=== PATIENT | female | born 1945 | race Caucasian/White ===

== ENCOUNTER 2023-08-29 13:40 | Inpatient (IN) | payer MEDICARE, BC, SELFPAY ==
[2023-08-29] VITALS (12 sets, daily range): BP systolic 106–122; BP diastolic 56–73; PULSE 64–80; RESP 12–18; TEMP 36.5–37.1; O2SAT 97–99; BMI 24.9
--- NOTE | 2023-08-29 15:07 | ED_ITS ---
HPI - General Adult General Date Seen: 08/29/23 Chief complaint: Fall/Minor Trauma Stated complaint: fall 2x last 24 hours Time Seen by Provider: 08/29/23 15:05 History of Present Illness HPI narrative: This is a pleasant 78-year-old female with a history of dementia who is brought to the ER today by her son with concern for new worsening memory problems and multiple episodes of falls at home. She has a known diagnosis of dementia and had been stable on that for several months. They follow with their doctor through the [facility] and she is on donepezil to treat her dementia it, 10 mg twice a day. The patient's sister did come to visit her couple of weeks ago (because her son was getting ) and noted that she seemed to have did deteriorated since last fall. She had a couple of episodes where she woke up shouting in the middle of the night. However her son is near to her and visits her every day. The patient is normally able to care for self at home. She does not really cook or microwave meals so her son brings over food for her. She has a dog and is generally able to keep up her town home. However for the past couple of days she seems to be more confused than normal. Her son came to check on her last night and actually found her on the floor of the landing but near her front door. She has a split-level town home. It is unclear if she fell. She had a diet Coke that she had set carefully on the floor and did not spill. However her son found the patient on the floor. She required assistance up. She was able to walk and seemed to have no injury. She had no lower episode last night where she seemed to have either fallen in the toilet gotten off the toilet. She had been incontinent of urine and stool and then pulled herself across the floor. She son and [id number] found her on the floor this morning. Her dog had been on its tires out lead in the backyard and had been let back in the door but not taken off the lead. The patient was on the floor. Patient does have dementia sure she is not a reliable historian. She has no complaints. However she had mentioned to her son earlier that there was a bump on the back of her head. She has a bruise on her left wrist ulnar styloid that she does not recall receiving. She denies any other pain. She has had a bit of a cough the past couple of days. No fever. No trouble breathing. No stuffy nose. No other definite symptoms. As far as we know her appetite has been normal. No known dysuria or urgency. We think bowel movements have been normal. She takes baby aspirin and donepezil. No other meds. Related Data Home Medications Medication Instructions Recorded Confirmed aspirin 81 mg chewable tablet 81 mg PO DAILY 08/29/23 08/29/23 Allergies Allergy/AdvReac Type Severity Reaction Status Date / Time No Known Drug Allergies Allergy Verified 08/29/23 14:04 [facility] Social History Smoking Status: Never smoker Do you use any of these nicotine containing products: None How often do you have a drink containing alcohol: never AUDIT-C Alcohol total score: 0 service: No Exam Narrative: Exam Narrative: Constitutional: Appears well-developed and well-nourished. Alert. Conversant. Non toxic. HENT: Head: 2 cm occipital scalp hematoma. No underlying skull fracture. No raccoon eyes or Braga sign.. Nose: Nose normal. Mouth/Throat: Oral mucosa is clear and moist. no trismus. Pharynx normal. Tonsils symmetric. No tonsillar enlargement, erythema, or exudate. Eyes: Conjunctivae normal. EOM normal. Pupils equal, round, and reactive to light. No scleral icterus. Neck: Normal range of motion. Neck supple. No tracheal deviation present. No JVD Cardiovascular: Normal rate, regular rhythm. No gallop. No friction rub. No murmur heard. Symmetric radial and PT/DP artery pulses Pulmonary/Chest: Effort normal. No stridor. No respiratory distress. No wheezes. No rales. No rhonchi . No tenderness. Abdominal: Soft. Bowel sounds normal. No distension. She has a ventral hernia which is previously known. No tenderness.. No tenderness. No rebound. No guarding. Musculoskeletal: RUE: Normal range of motion. No tenderness. No deformity LUE: Normal range of motion. No tenderness. No deformity RLE: Normal range of motion. No edema. No tenderness. No deformity LLE: Normal range of motion. No edema. No tenderness. No deformity Lymph: No cervical adenopathy. Neurological: Alert and oriented to person, and knows that she is at the hospital but does not know what day it is. She is minimizing lot of her symptoms. Normal strength bilaterally in the physical education department chair, biceps, triceps, hip flexors, quads, hamstrings, gastrocnemius, tibialis anterior.. CN II-VII intact. No focal sensory deficit. GCS eye subscore is 4. GCS verbal subscore is 5. GCS motor subscore is 6. Normal coordination Skin: Skin is warm and dry. No rash noted. No pallor. Normal capillary refill. Psychiatric: Normal mood. Normal affect. Polite but poor memory. Const: Vital Signs, click to edit/add: Vital Signs - 24 hr 08/29/23 13:57 08/29/23 17:44 08/29/23 18:01 Temperature 97.7 F Pulse Rate 64 65 Pulse Rate [Right Pulse Oximeter] 74 Respiratory Rate 14 16 Blood Pressure 122/64 117/63 Blood Pressure [Ri ght Upper Arm] 108/67 Pulse Oximetry 99 98 98 Oxygen Delivery Me thod Room Air 08/29/23 18:31 08/29/23 19:01 08/29/23 19:31 Temperature Pulse Rate 69 71 68 Pulse Rate [Right Pulse Oximeter] Respiratory Rate 16 14 12 Blood Pressure 118/73 115/69 112/64 Blood Pressure [Ri ght Upper Arm] Pulse Oximetry 98 98 97 Oxygen Delivery Me thod 08/29/23 20:01 08/29/23 20:31 08/29/23 20:54 Temperature 97.7 F Pulse Rate 72 70 Pulse Rate [Right Pulse Oximeter] 74 Respiratory Rate 14 12 12 Blood Pressure 109/64 108/60 Blood Pressure [Ri ght Upper Arm] 108/67 Pulse Oximetry 97 98 Oxygen Delivery Me thod Course Vital Signs Vital signs: Initial Vital Signs Temperature 97.7 F 08/29/23 13:57 Temperature Source Temporal Artery Scan 08/29/23 13:57 Pulse Rate 74 08/29/23 13:57 Pulse Rhythm Regular 08/29/23 13:57 Pulse Strength 3+ Normal 08/29/23 13:57 Blood Pressure 108/67 08/29/23 13:57 Blood Pressure Mean 80 08/29/23 13:57 Blood Pressure Position Sitting 08/29/23 13:57 Pulse Oximetry 99 08/29/23 13:57 Oxygen Delivery Method Room Air 08/29/23 13:57 Vital Signs Temperature 97.7 F 08/29/23 13:57 Pulse Rate 74 08/29/23 13:57 Blood Pressure 108/67 08/29/23 13:57 Pulse Oximetry 99 08/29/23 13:57 Oxygen Delivery Method Room Air 08/29/23 13:57 Temperature 97.7 F 08/29/23 20:54 Pulse Rate 74 08/29/23 20:54 Respiratory Rate 12 08/29/23 20:54 Blood Pressure 108/67 08/29/23 20:54 Pulse Oximetry 98 08/29/23 20:31 Oxygen Delivery Method Room Air 08/29/23 13:57 Medications Administered Medications: Generic Name Dose Route Start Last Admin Trade Name Freq PRN Reason Stop Dose Admin Acetaminophen 1,000 mg 08/29/23 20:28 08/29/23 20:38 Acetaminophen 500 Mg Tablet PO 08/29/23 20:29 1,000 mg ONCE ONE Administration Discontinued Medications Generic Name Dose Route Start Last Admin Trade Name Freq PRN Reason Stop Dose Admin Ceftriaxone Sodium 1 gm/ 100 mls @ 200 mls/hr 08/29/23 18:10 08/29/23 19:00 Sodium Chloride IVPB 08/29/23 18:11 Infused ONCE ONE Infusion Azithromycin 500 mg/ Sodium 255 mls @ 255 mls/hr 08/29/23 18:10 08/29/23 20:10 Chloride IVPB 08/29/23 18:11 Infused ONCE ONE Infusion Sodium Chloride 1,000 mls @ 1,000 mls/hr 08/29/23 20:00 08/29/23 20:26 0.9 % Sodium Chloride 1000 Ml IV 08/29/23 20:59 1,000 mls/hr .Q1H [facility] Administration Medical Decision Making MDM Narrative Medical decision making narrative: 78-year-old female with a known history of dementia, but still functional enough that she lives in her own town home. She may have been slowly declining since last fall but son who sees her every day notes a significant change in function this weekend over the past couple of days including 2 episodes where she has been found on the floor, unknown if she has fallen or what. She also seems more confused with more poor memory than her baseline. 1. Trauma. She does have a few small areas of ecchymosis on her skin but no obvious long bone injuries. Hips are nontender and pelvis is stable. We did get a CT scan of her head because of a small occipital hematoma. Head CT is normal. She is not having neck pain but C-spine cannot be cleared without imaging due to dementia and limited exam. C-spine CT is also negative. She is not having any pain or tenderness of ribcage or chest. No other evidence for a significant traumatic injury. 2. Infectious disease. Consider possible sepsis, UTI, or other infection as a cause for an acute on chronic mental status change. White count elevated at 12.6. CRP elevated at 17. She is not febrile. Blood pressure and pulse rate are normal. No sepsis physiology. Negative for coronavirus, influenza, RSV by PCR. Chest x-ray suggests a right upper lobe infiltrate. This would correlate with rales on my clinical exam. She is not hypoxic minimal coughing. Suspect that she may have and community-acquired pneumonia and potentially this is why she has been falling at home. Will treat with IV antibiotics. Urinalysis - still pending at the time of admission. She did produce 2 urine samples but contaminated them both with feces therefore we do not have a sample yet for analysis. Hospitalist aware and can follow up on urine sample once it is obtained on the floor. 2. Cardiac - EKG nonischemic. No arrhythmia. 3. Neuro-patient does have known dementia and son feels like she has been deteriorating lately. There is also an acute on chronic change that occurred this weekend leading to the falls. Son is requesting that we have a consult with social Work to consider placement in a memory care unit. This can be obtained while she is on the floor. Lab Data Labs: Lab Results 08/29/23 Range/Units 15:38 WBC 12.67 H (4.50-11.00) K/uL RBC 4.11 (4.00-5.20) m/uL Hgb 12.3 (12.0-16.0) gm/dL Hct 37.3 (33.0-51.0) % MCV 91 (80-100) fL MCH 30 (26-34) pg MCHC 33 (32-36) gm/dL RDW Coeff of Gail 14.0 (11.5-15.5) % Plt Count 262 (140-440) K/uL Neut % (Auto) 77.0 H (42.0-72.0) % Lymph % (Auto) 17.8 L (20-44) % [place] % (Auto) 4.7 (0.0-11.0) % Eos % (Auto) 0.2 (0.0-7.0) % Baso % (Auto) 0.1 (0.0-3.0) % Neut # (Auto) 9.80 H (1.7-7.0) K/uL Lymph # (Auto) 2.30 (0.90-2.90) K/uL [place] # (Auto) 0.60 (0.00-0.90) K/UL Eos # (Auto) 0.00 (0.00-0.50) K/uL Baso # (Auto) 0.00 (0.00-0.30) K/uL Abs Immat Gran (auto) 0.00 (0.00-0.30) K/uL Imm/Tot Granulo (auto) 0.2 % Sodium 134 L (135-149) mmol/L Potassium 3.7 (3.6-5.1) mmol/L Chloride 99 (96-114) mmol/L Carbon Dioxide 24 (20-32) mmol/L Anion Gap 11 (7-15) mEq/L BUN 26 (7-30) mg/dL Creatinine 0.9 (0.5-1.5) mg/dL Estimated Creat Clear 40.04 Estimated GFR 65 ml/min Glucose 106 (60-115) mg/dL Lactate 1.1 (0.5-1.9) mmol/L Calcium 9.9 (8.4-10.6) mg/dL Troponin I < 0.01 L (0.01-0.04) ng/mL C-Reactive Protein 17.3 H (0.5-1.0) mg/dL SARS-CoV-2 (PCR) Negative SARS-CoV-2 (Negative) Influenza Type A (PCR) Negative PCR FLU A (Negative) Influenza Type B (PCR) Negative PCR FLU B (Negative) RSV (PCR) Negative PCR RSV (Negative) Imaging Data Chest x-ray: Attestation: I have reviewed the pertinent imaging results. Radiologist's impression: IMPRESSION: 1. Infiltrates right upper lobe; difficult to differentiate acute from chronic. 2. No pneumothorax or pleural effusion. CT C spine: Attestation: I have reviewed the pertinent imaging results. Radiologist's impression: IMPRESSION: No acute fracture. CT scan - head: Attestation: I have reviewed the pertinent imaging results. Radiologist's impression: IMPRESSION: No acute intracranial hemorrhage or mass effect. ECG Data Attestation: I personally reviewed and interpreted this ECG as follows: Interpretation: Normal sinus rhythm with marked sinus arrhythmia Rate: 67 HI: 182 QRS axis: Normal axis ST segment/T wave: Nonspecific T-wave flattening. No ST segment elevation or depression QTc: 420 Discharge Plan Discharge Clinical Impression: Confusion, Pneumonia, Falls Patient Disposition: Admitted As Observation
--- NOTE | 2023-08-29 15:27 | CT_ITS ---
Patient: ALLI CADE Facility:?[facility] Patient ID:?[id number] Site Patient ID:?[id number]. Site :?1945 Study:?CT-Head WITHOUT-08/29/2023 4:06:00 PM Ordering Physician:?DR. GONCALVES Final Report: INDICATION: Fall. TECHNIQUE: Noncontrast CT images of the brain. COMPARISON: None. FINDINGS: [id number] diffuse cerebral volume loss. No mass effect or midline shift. The andrews-white differentiation is maintained. No acute intracranial hemorrhage or pathologic extra-axial fluid collection. Confluent hypoattenuation in the supratentorial white matter, suggestive of advanced chronic microvascular ischemic changes. Intracranial atherosclerotic calcifications. Thinning of the ocular lenses. The calvarium is intact. Minimal ethmoid sinus mucosal thickening. The mastoid air cells are clear. IMPRESSION: No acute intracranial hemorrhage or mass effect. Please note that all CT scans at this facility use dose modulation, iterative reconstruction, and/or weight-based dosing when appropriate to reduce radiation dose to as low as reasonably achievable. Dictated by Michael Elizabeth MD @ 08/29/2023 4:23:09 PM Signed by:?Michael Elizabeth MD @08/29/2023 4:23:09 PM (Electronic Signature)
--- NOTE | 2023-08-29 15:27 | XR_ITS ---
Patient: ALLI CADE Facility:?[facility] Patient ID:?[id number] Site Patient ID:?[id number] Site :?1945 Study:?XRay-Chest 2 VIEW-08/29/2023 4:07:20 PM Ordering Physician:?DR. GONCALVES Final Report: INDICATION: Fell; right basilar rales. Comparison : None. TECHNIQUE: Two view chest. Findings: Pectus excavatum deformity. Normal size cardiac silhouette. Infiltrates upper lobe right lung; can not differentiate acute from chronic IMPRESSION: 1. Infiltrates right upper lobe; difficult to differentiate acute from chronic. 2. No pneumothorax or pleural effusion. Dictated by Ashlyn Dave MD @ 08/29/2023 4:30:32 PM Signed by:?Ashlyn Dave MD @08/29/2023 4:30:32 PM (Electronic Signature)
--- NOTE | 2023-08-29 15:27 | CT_ITS ---
Patient: ALLI CADE Facility:?[facility] Patient ID:?[id number] Site Patient ID:?[id number]. Site :?1945 Study:?CT-Spine Cervical WITHOUT-08/29/2023 4:06:32 PM Ordering Physician:?DR. GONCALVES Final Report: INDICATION: Fall. TECHNIQUE: CT cervical spine without contrast. COMPARISON: None. FINDINGS: No acute fracture. No listhesis. Bony mineralization is age appropriate. No prevertebral soft tissue hematoma or swelling. No soft tissue abnormality is identified. Severe multilevel cervical spondylosis. Chronic height loss of multiple vertebral bodies. Disc osteophyte complexes causing at least effacement of the anterior thecal sac. No pathologically enlarged lymph nodes. Thyroid is normal. Biapical subpleural fibrosis.. IMPRESSION: No acute fracture. Please note that all CT scans at this facility use dose modulation, iterative reconstruction, and/or weight-based dosing when appropriate to reduce radiation dose to as low as reasonably achievable. Dictated by Blaise Bal MD @ 08/29/2023 4:18:57 PM Signed by:?Blaise Bal MD @08/29/2023 4:18:57 PM (Electronic Signature)
[2023-08-29 15:45] LABS: Basophils Percent Auto 0.1 % (0.0-3.0); Eosinophils Percent Auto 0.2 % (0.0-7.0); Hematocrit 37.3 % (33.0-51.0); Hemoglobin* 12.3 gm/dL (12.0-16.0); Immature Granulocytes Pct Auto 0.2 %; Lactate* 1.1 mmol/L (0.5-1.9); Lymphocytes Percent Auto 17.8 % (20-44); Mean Corpuscular HGB Conc 33 gm/dL (32-36); Mean Corpuscular Hemoglobin 30 pg (26-34); Mean Corpuscular Volume 91 fL (80-100); Monocytes Percent Auto 4.7 % (0.0-11.0); Platelet Count* 262 K/uL (140-440); Red Blood Count 4.11 m/uL (4.00-5.20); White Blood Count* 12.67 K/uL (4.50-11.00)
[2023-08-29 15:48] LABS: Slide Review Reflex No
[2023-08-29 16:07] LABS: Chloride* 99 mmol/L (96-114); Potassium* 3.7 mmol/L (3.6-5.1); Sodium* 134 mmol/L (135-149)
[2023-08-29 16:10] LABS: Creatinine* 0.9 mg/dL (0.5-1.5); Est. Creatinine Clearance* 40.04; Estimated Glomerular Filt Rate 65 ml/min
[2023-08-29 16:11] LABS: Anion Gap 11 mEq/L (7-15); Blood Urea Nitrogen* 26 mg/dL (7-30); Calcium* 9.9 mg/dL (8.4-10.6); Carbon Dioxide* 24 mmol/L (20-32); Glucose* 106 mg/dL (60-115)
[2023-08-29 16:25] LABS: C Reactive Protein* 17.3 mg/dL (0.5-1.0); Troponin I* < 0.01 ng/mL (0.01-0.04)
[2023-08-29 16:50] LABS: PCR FLU A Negative PCR FLU A (Negative); PCR FLU B Negative PCR FLU B (Negative); PCR RSV Negative PCR RSV (Negative); SARS PCR* Negative SARS-CoV-2 (Negative)
[2023-08-29] MEDS: cefTRIAXone 1 GM in 0.9 % SODIUM CHLORIDE Mini-bag 100 ML IVPB (18:28)
[2023-08-29] MEDS: AZITHROMYCIN 500 MG in 0.9 % SODIUM CHLORIDE 250 ml 250 ML 255 MG IVPB (19:11)
[2023-08-29] MEDS: 0.9 % SODIUM CHLORIDE 1000 ml 1,000 ML IV (20:26)
[2023-08-29] MEDS: ACETAMINOPHEN 500 MG TABLET 1000 MG PO (20:38)
--- NOTE | 2023-08-29 22:30 | P.IMHP_ITS ---
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 Gold, neurologist), presents accompanied by her son, Josr, for assessment of worsening ability to care for herself safely. Patient lives alone in her town house with her dog. Son lives 2 blocks away. Son and check on the patient at least twice daily, sometimes more often. Over the last few days the patient has been more confused. Patient has had several falls. None the episodes were witnessed. One episode occurred such that the patient's son found her on the floor near the entry way without apparent injury. A 2nd episode occurred last night when she seems to have fallen near the toilet. Noticed bruising on her elbow and wrist from this. This morning when they went to her home to assess her, she was not answering her phone, they found her on the floor with stool in urine nearby. Patient usually carries her cell phone with her but had left it in her bedroom and did not have the cellphone near her. The patient's dog had a lesion on it as if though it had been let in the house but the leash was kept on. Patient has little recollection of any of these episodes. Patient tells me she is happy and healthy goes to the gym a couple times a week. She tries to eat the right foods. Has no complaints. Has no concerns about falling. Review of Systems Status of ROS: Reports: 6 or more systems reviewed and unremarkable except as noted in History and below Narrative: Patient and son deny any recent illness, fever, rigors, diaphoresis. No change in patient's respiratory abilities. No obvious dyspnea or tachypnea. No obvious cough. No obvious chest heaviness, pressure, tightness, or pain. Cognitive and physical abilities have gradually declined without any sudden ch anges or worsening. Only in the last few days has there been increasing concerned that patient is no longer able to safely care for herself. Patient and son note that the patient requests DNR DNI resuscitation status in the event of cardiopulmonary demise. Her son, Josr, is her power of textile cutting machine operator for health. Josr indicates he believes his mother needs a lot more support than what she currently has in the home and it has become evident within the last few days that it is no longer safe for her mother to continue to live as she has been. No history of tobacco use. Her 2nd smoked in the home for number of years before he finally quit and patient was exposed to secondhand smoke throughout that time. No history of alcohol use. No substance use disorder. [facility] Medical History (Updated 08/29/23 @ 23:05 by Yaakov Bass MD) Rectal prolapse ?K62.3 - Rectal prolapse (ICD-10) Arthritis ?M19.90 - Unspecified osteoarthritis, unspecified site (ICD-10) Detached retina ?H33.20 - Serous retinal detachment, unspecified eye (ICD-10) Hyperlipidemia ?E78.5 - Hyperlipidemia, unspecified (ICD-10) Essential hypertension ?I10 - Essential (primary) hypertension (ICD-10) Mixed Alzheimer's and vascular dementia ?G30.9 - Alzheimer's disease, unspecified (ICD-10) ?F01.50 - Vascular dementia, unspecified severity, without behavioral disturbance, psychotic disturbance, mood disturbance, and anxiety (ICD-10) ?F02.80 - Dementia in other diseases classified elsewhere, unspecified severity, without behavioral disturbance, psychotic disturbance, mood disturbance, and anxiety (ICD-10) Family History (Updated 08/29/23 @ 22:48 by Yaakov Bass MD) Mother Alzheimers disease Father Alcohol dependence Sister Kidney disease Social History What is your current living situation?: I presently have a place to live Problems where you live: no known problems Problems where you live details: no known problems In the past 12 months, utilities in danger of being shut off: no In past 12 months, lack of transportation kept you from medical appts, meetings, work, or getting things needed for daily living: no In the past 12 mos, have been you worried that your food would run out before you had money to buy more?: never true In the past 12 mos, the food you bought just didn't last and you didn't have money to buy more?: never true Smoking Status: Never smoker Do you use any of these nicotine containing products: None Second hand tobacco smoke exposure: No How often do you have a drink containing alcohol: never AUDIT-C Alcohol total score: 0 Non-prescribed substance use: denies use Caffeine: Yes (Coffee and diet coke) How often does anyone, including family, friends and others, physically hurt you : never How often does anyone, including family, friends and others, insult or talk down to you: never How often does anyone, including family, friends and others, threaten you with harm: never How often does anyone, including family, friends and others, scream or curse at you: never service: No Meds Home Medications and Allergies Home Medications Medication Instructions Recorded Confirmed Type aspirin 81 mg chewable tablet 81 mg PO DAILY 08/29/23 08/29/23 History Home Medication Comments: Donepezil 10 mg orally twice daily, administered by son and [id number] Allergies Allergy/AdvReac Type Severity Reaction Status Date / Time No Known Drug Allergies Allergy Verified 08/29/23 14:04 Exam Narrative: Exam Narrative: Examined patient in her hospital room. Appears comfortable in no acute distress. Friendly and grateful. Alert and oriented to self, son, in part to place, not to time, not to situation. Tells me multiple times that she is happy, healthy, tries to live a good life, eats well, is safe. She tells me several times that she trusts her son and relies on him to help her. Cranial nerves 3-12 are grossly normal. No focal motor neurologic deficits. Moves all 4 extremities. No tremor, asterixis, or ataxia. Lungs with coarse rales bilaterally. No wheezing or rhonchi. Chest wall excursions are full with respiratory efforts. No CVA tenderness. Heart tones with regular rhythm, normal S1-S2, without murmur, gallop, or rub. PMI not laterally displaced. Abdomen with active bowel sounds, soft, nontender. Extremities without edema. No open wounds. Contusion to elbow and wrist. Const: Vital Signs, click to edit/add: Vital Signs - 24 hr 08/29/23 13:57 08/29/23 17:44 08/29/23 18:01 Temperature 97.7 F Pulse Rate 64 65 Pulse Rate [Pulse Oximeter] Pulse Rate [Right Pulse Oximeter] 74 Respiratory Rate 14 16 Blood Pressure 122/64 117/63 Blood Pressure [Le ft Arm] Blood Pressure [Ri ght Upper Arm] 108/67 Pulse Oximetry 99 98 98 Oxygen Delivery Me thod Room Air 08/29/23 18:31 08/29/23 19:01 08/29/23 19:31 Temperature Pulse Rate 69 71 68 Pulse Rate [Pulse Oximeter] Pulse Rate [Right Pulse Oximeter] Respiratory Rate 16 14 12 Blood Pressure 118/73 115/69 112/64 Blood Pressure [Le ft Arm] Blood Pressure [Ri ght Upper Arm] Pulse Oximetry 98 98 97 Oxygen Delivery Me thod 08/29/23 20:01 08/29/23 20:31 08/29/23 20:54 Temperature 97.7 F Pulse Rate 72 70 Pulse Rate [Pulse Oximeter] Pulse Rate [Right Pulse Oximeter] 74 Respiratory Rate 14 12 12 Blood Pressure 109/64 108/60 Blood Pressure [Le ft Arm] Blood Pressure [Ri ght Upper Arm] 108/67 Pulse Oximetry 97 98 Oxygen Delivery Me thod 08/29/23 20:55 08/29/23 20:55 Temperature 98.8 F Pulse Rate Pulse Rate [Pulse Oximeter] 80 Pulse Rate [Right Pulse Oximeter] Respiratory Rate 18 18 Blood Pressure Blood Pressure [Le ft Arm] 119/64 Blood Pressure [Ri ght Upper Arm] Pulse Oximetry 98 98 Oxygen Delivery Me thod Room Air Room Air Hospitalist - H&P: Result Labs Labs: Short CBC 08/29/23 Range/Units 15:38 WBC 12.67 H (4.50-11.00) K/uL Hgb 12.3 (12.0-16.0) gm/dL Hct 37.3 (33.0-51.0) % Plt Count 262 (140-440) K/uL BMP 08/29/23 15:38 Sodium 134 L Potassium 3.7 Chloride 99 Carbon Dioxide 24 BUN 26 Creatinine 0.9 Glucose 106 Calcium 9.9 Cardiac Enzymes 08/29/23 Range/Units 15:38 Troponin I < 0.01 L (0.01-0.04) ng/mL ECG ECG interpretation date: 08/29/23 Interpretation: Normal sinus rhythm with sinus arrhythmia peer Imaging CT scan - head: Radiologist's impression: No acute abnormality noted. CT scan - cervical spine: Radiologist's impression: FINDINGS: No acute fracture. No listhesis. Bony mineralization is age appropriate. No prevertebral soft tissue hematoma or swelling. No soft tissue abnormality is identified. Severe multilevel cervical spondylosis. Chronic height loss of multiple ve rtebral bodies. Disc osteophyte complexes causing at least effacement of the anterior thecal sac. No pathologically enlarged lymph nodes. Thyroid is normal. Biapical subpleural fibrosis.. IMPRESSION: No acute fracture. Chest x-ray: Radiologist's impression: IMPRESSION: 1. Infiltrates right upper lobe; difficult to differentiate acute from chronic. 2. No pneumothorax or pleural effusion. Assessment and Plan Assessment and plan (1) Mixed Alzheimer's and vascular dementia: Problem comment: - followed by Dr. Luis Gold, neurologist, [facility] [place] [facility] - donepezil 10 mg orally twice daily - MRI of brain without contrast on 12/14/2022 demonstrating: Scattered nonspecific T2-FLAIR hyperintensities within the cerebral white matter and jana consistent with mild chronic microvascular ischemic change. Moderate generalized cerebral atrophy. Tiny chronic lacunar type infarctions left cerebellar hemisphere. - it appears patient is no longer safe in her home. Reviewed with son who indicates he feels likewise. He is willing to consider alternative living arrangements if possible. Will ask PT and OT to assess and assist with recommendations. Status: Acute (2) Confusion: Problem comment: - no obvious acute changes on assessment at this time suggesting progression of underlying dementia. Status: Acute (3) Falls: Problem comment: - no obvious acute changes on assessment at this time suggesting progression of underlying dementia. Status: Acute (4) Pulmonary interstitial fibrosis: Problem comment: - patient likely does not have an acute pneumonia. Findings on CT scan of cervical spine suggest pulmonary fibrosis. Physical findings with coarse rales suggest the same. Will check a CT scan of the chest without contrast for further assessment. Status: Acute Plan 1. Reviewed with patient and her son, Josr, who are in agreement with above stated plans and recommendations. Total Time Spent Total Time Spent: 70 min
[2023-08-30 02:54] LABS: Appearance Urine Clear (Clear); Bilirubin Urine Negative (Negative); Blood Urine 2+ (Negative); Color Urine Yellow (Yellow); Glucose Urine Negative (Negative); Ketones Urine Negative (Negative); Leukocyte Esterase Urine 2+ (Negative); Nitrite Urine Negative (Negative); Protein Urine Negative (Negative); Specific Gravity Urine <= 1.005 (1.000-1.030); Urobilinogen Urine 0.2 (0.2-1.0)
[2023-08-30 03:00] VITALS: BP 114/56; PULSE 69; RESP 14; TEMP 36.5; O2SAT 97
[2023-08-30 03:00] LABS: Bacteria Urine Few; RBC Urine 0-2 (0-2); Squamous Epithelial Cell Urine Few (None-Few)
--- NOTE | 2023-08-30 06:40 | PC.NURSE ---
Pt is alert to self and knows she is at the hospital but can?t recall which hospital, or what brought her here. Pt denies pain, chest pain, SOB, and N/V. Pt is up SBA with walker. VSS. Pt slept throughout most of night. Night uneventful. ?
--- NOTE | 2023-08-30 07:00 | CT_ITS ---
Patient: ALLI CADE Facility:?[facility] RIS Patient ID:?[id number] Site Patient ID:?[id number]. Site :?[id number] Study:?CT-Chest W/O-08/30/2023 6:47:24 AM Ordering Physician:INNA Final Report: INDICATION: Abnormal cervical spine CT showing apical abnormality. CTA of chest performed for further evaluation COMPARISON: No prior chest CTs. TECHNIQUE: : CT examination of the chest was performed without contrast. Thin axial sections were obtained from above the apices of the lungs to the lung bases. Please note that all CT scans at this facility use dose modulation, iterative reconstruction, and/or weight-based dosing when appropriate to reduce radiation dose to as low as reasonably achievable. FINDINGS: : HEART and MEDIASTINUM: The heart size is top-normal. There is lymphadenopathy noted. This has primarily right paratracheal though there is some precarinal and subcarinal lymphadenopathy. A small pericardial effusion is noted. There are atherosclerotic vascular and valvular calcification LUNGS: Interstitial fibrosis pattern. This is primarily subpleural. It is diffusely located but does have a basilar predominance. No definite diffuse ground-glass. Biapical pleural-parenchymal scarring with associated traction bronchiectasis. There is a suggestion of a series of ground-glass nodules at the right lung base this may just be related to confluent fibrosis. PLEURAL SPACES: No pleural effusion or pneumothorax VISUALIZED UPPER ABDOMEN: The limited visualized upper abdominal structures appear normal. OSSEOUS STRUCTURES: No destructive process of bone TUBES and LINES: None. IMPRESSION: 1. Moderate to severe interstitial fibrosis pattern. The pattern regarding its underlying etiology is indeterminate/nonspecific. This involves all lobes but has a somewhat basilar predominance. No definite honeycombing. No diffuse ground-glass. 2. Right paratracheal and mediastinal lymphadenopathy. The laterality and lack of diffuse lymphadenopathy arguing for a malignant rather than a reactive process. This should be further evaluated in the nonacute setting. 3. There are some confluent ground-glass opacities at the right base which could be ground-glass nodules though it may simply represent asymmetric development of fibrosis. 4. From an imaging perspective, PET-CT would be the study of choice for further evaluation. Please note that all CT scans at this facility use dose modulation, iterative reconstruction, and/or weight-based dosing when appropriate to reduce radiation dose to as low as reasonably achievable. Dictated by Ivan Acosta MD @ 08/30/2023 6:57:54 AM Signed by:?Ivan Acosta MD @08/30/2023 6:57:54 AM (Electronic Signature)
--- NOTE | 2023-08-30 08:28 | P.IMPN_ITS ---
Progress Note: A&P Assessment and plan (1) Confusion: Problem details: - no obvious acute changes on assessment at this time suggesting progression of underlying dementia. - MOCA today. Looking at memory care or TCU for discharge. Status: Acute (2) Mixed Alzheimer's and vascular dementia: Problem details: - followed by Dr. Luis Gold, neurologist, [facility] [place] [facility] - donepezil 10 mg orally twice daily - MRI of brain without contrast on 12/14/2022 demonstrating: Scattered nonspecific T2-FLAIR hyperintensities within the cerebral white matter and jana consistent with mild chronic microvascular ischemic change. Moderate generalized cerebral atrophy. Tiny chronic lacunar type infarctions left cerebellar hemisphere. - it appears patient is no longer safe in her home. Reviewed with son who indicates he feels likewise. He is willing to consider alternative living arrangements if possible. Will ask PT and OT to assess and assist with r ecommendations. Status: Chronic (3) Falls: Problem details: - no obvious acute changes on assessment at this time suggesting progression of underlying dementia. Status: Acute (4) Pneumonia: Problem details: - Possible, WBC elevated, no infiltrate seen on CT. Pulmonary fibrosis more likely diagnosis. Has not had any fevers. Treat with 3 days of antibiotics (currently on ceftriaxone, azithromycin), then stop Status: Acute (5) Pulmonary interstitial fibrosis: Problem details: - patient likely does not have an acute pneumonia. CT chest severe pulmonary fibrosis Status: Acute (6) Lymphadenopathy, mediastinal: Problem details: - on CT 08/30/23, concerning for the possibility of malignancy. I spoke with the patient's son regarding this and the recommendation for outpatient PET-CT. We also discussed patient has dementia and goals of care. He is going to discuss this further with her before making the decision about whether not to investigate further. Status: Acute Subjective Time Seen by Provider: 09:00 Date Seen: 08/30/23 Interval history: Jeannine knew she was in the hospital, but thought it was [place]. She was a bit confused about her current situation and vague about her home setting. 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 He told me that she has been declining slowly for the past few years, but seemed to do a bit better since starting a medication for dementia. Then Fawad got two weeks ago and there were a lot of family in the area visiting and the patient's sister stayed with Jeannine for the week. Jeannine did very well with all of that, but when everyone left, Jeannine started a rapid mental decline. He is concerned about her living alone and would like her to go to memory care, hopefully in [place]. He had a discussion with her about 6 months ago regarding health care decisions and they filled out a power of employment law attorney and advanced directive. She wanted to be DNR/DNI and he recalls her saying that she would not want any surgery. He wishes to talk with her about the CT findings before deciding whether or not to do further investigation. Exam Narrative: Exam Narrative: General: No acute distress. Awake, alert, oriented to self, knew that she was at a hospital, but not the city, not very well oriented to situation. No pallor. No jaundice. Oropharynx: Clear. Mucous membranes moist. Cardiovascular: Regular rate and rhythm. No murmurs, gallops, or rubs. Respiratory: Clear to auscultation bilaterally. No wheezes or crackles. Abdomen: Bowel sounds present. Soft, nondistended, nontender. Extremities: No pedal edema. Const: Vital Signs, click to edit/add: Vital Signs - 24 hr 08/29/23 13:57 08/29/23 17:44 08/29/23 18:01 Temperature 97.7 F Pulse Rate 64 65 Pulse Rate [Pulse Oximeter] Pulse Rate [Right Pulse Oximeter] 74 Respiratory Rate 14 16 Blood Pressure 122/64 117/63 Blood Pressure [Le ft Arm] Blood Pressure [Ri ght Upper Arm] 108/67 Pulse Oximetry 99 98 98 Oxygen Delivery Me thod Room Air 08/29/23 18:31 08/29/23 19:01 08/29/23 19:31 Temperature Pulse Rate 69 71 68 Pulse Rate [Pulse Oximeter] Pulse Rate [Right Pulse Oximeter] Respiratory Rate 16 14 12 Blood Pressure 118/73 115/69 112/64 Blood Pressure [Le ft Arm] Blood Pressure [Ri ght Upper Arm] Pulse Oximetry 98 98 97 Oxygen Delivery Me thod 08/29/23 20:01 08/29/23 20:31 05/05/24 20:54 Temperature 97.7 F Pulse Rate 72 70 Pulse Rate [Pulse Oximeter] Pulse Rate [Right Pulse Oximeter] 74 Respiratory Rate 14 12 12 Blood Pressure 109/64 108/60 Blood Pressure [Le ft Arm] Blood Pressure [Ri ght Upper Arm] 108/67 Pulse Oximetry 97 98 Oxygen Delivery Me thod 08/29/23 20:55 08/29/23 20:55 08/29/23 23:19 Temperature 98.8 F 98.5 F Pulse Rate Pulse Rate [Pulse Oximeter] 80 66 Pulse Rate [Right Pulse Oximeter] Respiratory Rate 18 18 16 Blood Pressure Blood Pressure [Le ft Arm] 119/64 106/56 L Blood Pressure [Ri ght Upper Arm] Pulse Oximetry 98 98 97 Oxygen Delivery Nm thod Room Air Room Air Room Air 08/29/23 23:47 08/30/23 03:00 Temperature 97.7 F Pulse Rate Pulse Rate [Pulse Oximeter] 69 Pulse Rate [Right Pulse Oximeter] Respiratory Rate 16 14 Blood Pressure Blood Pressure [Le ft Arm] 114/56 L Blood Pressure [Ri ght Upper Arm] Pulse Oximetry 97 Oxygen Delivery Nm thod Room Air Labs Labs: Laboratory Results - last 24 hr 08/29/23 08/30/23 15:38 02:45 WBC 12.67 H RBC 4.11 Hgb 12.3 Hct 37.3 MCV 91 MCH 30 MCHC 33 RDW Coeff of Gail 14.0 Plt Count 262 Neut % (Auto) 77.0 H Lymph % (Auto) 17.8 L [place] % (Auto) 4.7 Eos % (Auto) 0.2 Baso % (Auto) 0.1 Neut # (Auto) 9.80 H Lymph # (Auto) 2.30 [place] # (Auto) 0.60 Eos # (Auto) 0.00 Baso # (Auto) 0.00 Abs Immat Gran (auto) 0.00 Imm/Tot Granulo (auto) 0.2 Sodium 134 L Potassium 3.7 Chloride 99 Carbon Dioxide 24 Anion Gap 11 BUN 26 Creatinine 0.9 Estimated Creat Clear 40.04 Estimated GFR 65 Glucose 106 Lactate 1.1 Calcium 9.9 Troponin I < 0.01 L C-Reactive Protein 17.3 H Urine Color Yellow Urine Appearance Clear Urine pH 6.0 Ur Specific [place] <= 1.005 Urine Protein Negative Urine Glucose (UA) Negative Urine Ketones Negative Urine Blood 2+ A Urine Nitrite Negative Urine Bilirubin Negative Urine Urobilinogen 0.2 Ur Leukocyte Esterase 2+ A Urine RBC 0-2 Urine WBC 2-5 Ur Squamous Epith Cells Few Urine Bacteria Few A SARS-CoV-2 (PCR) Negative SARS-CoV-2 Influenza Type A (PCR) Negative PCR FLU A Influenza Type B (PCR) Negative PCR FLU B RSV (PCR) Negative PCR RSV Study: CT-Chest W/O-08/30/2023 6:47:24 AM Ordering Physician: ARNOL Final Report: INDICATION: Abnormal cervical spine CT showing apical abnormality. CTA of chest performed for further evaluation COMPARISON: No prior chest CTs. TECHNIQUE: : CT examination of the chest was performed without contrast. Thin axial sections were obtained from above the apices of the lungs to the lung bases. Please note that all CT scans at this facility use dose modulation, iterative reconstruction, and/or weight-based dosing when appropriate to reduce radiation dose to as low as reasonably achievable. FINDINGS: : HEART and MEDIASTINUM: The heart size is top-normal. There is lymphadenopathy noted. This has primarily right paratracheal though there is some precarinal and subcarinal lymphadenopathy. A small pericardial effusion is noted. There are atherosclerotic vascular and valvular calcification LUNGS: Interstitial fibrosis pattern. This is primarily subpleural. It is diffusely located but does have a basilar predominance. No definite diffuse ground-glass. Biapical pleural-parenchymal scarring with associated traction bronchiectasis. There is a suggestion of a series of ground-glass nodules at the right lung base this may just be related to confluent fibrosis. PLEURAL SPACES: No pleural effusion or pneumothorax VISUALIZED UPPER ABDOMEN: The limited visualized upper abdominal structures appear normal. OSSEOUS STRUCTURES: No destructive process of bone TUBES and LINES: None. IMPRESSION: 1. Moderate to severe interstitial fibrosis pattern. The pattern regarding its underlying etiology is indeterminate/nonspecific. This involves all lobes but has a somewhat basilar predominance. No definite honeycombing. No diffuse ground -glass. 2. Right paratracheal and mediastinal lymphadenopathy. The laterality and lack of diffuse lymphadenopathy arguing for a malignant rather than a reactive process. This should be further evaluated in the nonacute setting. 3. There are some confluent ground-glass opacities at the right base which could be ground-glass nodules though it may simply represent asymmetric development of fibrosis. 4. From an imaging perspective, PET-CT would be the study of choice for further evaluation. Please note that all CT scans at this facility use dose modulation, iterative reconstruction, and/or weight-based dosing when appropriate to reduce radiation dose to as low as reasonably achievable. Dictated by Ivan Acosta MD @ 08/30/2023 6:57:54 AM (Electronic Signature)
[2023-08-30] MEDS: ASPIRIN 81 MG TAB.CHEW PO (09:22)
[2023-08-30] MEDS: DONEPEZIL 10 MG TABLET PO ×2 (09:22→21:06)
[2023-08-30] MEDS: SODIUM CHLORIDE 0.9 % (FLUSH) 10 ML SYRINGE 5 ML IVF ×2 (09:29→21:07)
[2023-08-30 10:05] VITALS: BP 122/66; PULSE 79; RESP 20; TEMP 37.1; O2SAT 92
--- NOTE | 2023-08-30 11:53 | PC.SOCIAL ---
Addendum entered by KATHY Cornell 08/30/23 15:41: Discharge planning: Pt has been accepted to [facility] facility for Wednesday(09/01/23). road worker spoke to Lizajv Craig this afternoon and she stated that the pt will be able to go to their Advanced Assisted Living unit and does not necessarily need Memory Care, as she is not a wandering risk at this time. Liza stated they do have other pts in that unit with rocio, as well. Liza stated that the back-up plan for the pt would be to transfer her to the Memory Care building, which is right next door, if she should be come a wandering risk or more care is needed. road worker spoke to pt's son, Fawad, and he is pleased with this plan. road worker updated the charge nurse on duty. Social work to follow-up as needed. Addendum entered by KATHY Cornell 08/30/23 14:23: Discharge planning: road worker spoke with pt's son, Fawad #[phone], this afternoon. road worker explained that the pt is being recommended for Assisted Living-Memory Care. Pt does not qualify for a SNF/TCU Memory Care due to being discharged from OT/PT therapies today. Pt's son Fawad stated that they have an Assisted Living[facility] Care in mind in [place] called [facility]. road worker sent a referral there on behalf of the pt at pt's son's request. The contact for [facility] is Liza Craig #[phone], fax# [phone]. Fawad shared that Liza is a family friend and the pt knows her well; therefore, this would be a good fit for the pt, as she recognizes Liza and remembers her. Social work to follow-up as needed. Original Note: Discharge planning: Called pt's son and left message requesting call back regarding d/c plans. road worker to follow up as needed.
[2023-08-30 11:57] VITALS: BP 124/67; PULSE 81; RESP 16; TEMP 36.8; O2SAT 98
[2023-08-30] MEDS: ACETAMINOPHEN 325 MG TABLET 650 MG PO ×2 (13:53→21:11)
[2023-08-30 15:00] VITALS: BP 114/64; PULSE 68; RESP 16; TEMP 36.7; O2SAT 97
--- NOTE | 2023-08-30 15:22 | PC.NURSE ---
End of Shift [id number] ? Pt alert, oriented to self. Disoriented location, situation and time. Pt agreeable, easily redirected but was observed by RN to make repetitious statements and questions. Up with standby assistance, walker/gait belt. Pt reported feeling ?soreness? on hips and shoulder. Pt reported tolerating pain, but pt did not recall falling at home prior to hospital stay. Medication given per MAR to improve pt comfort. Bruising noted by RN on arms, legs, and hip appear to be consistent with pt history of falls prior to hospitalization. Tolerating RA, regular diet, fluids. VSS, afebrile during shift. Appears to be resting comfortably at end of shift. ?
[2023-08-30 19:00] VITALS: BP 130/63; PULSE 77; RESP 16; TEMP 36.9; O2SAT 97
[2023-08-30 23:00] VITALS: BP 115/61; PULSE 62; RESP 16; TEMP 36.4; O2SAT 96
[2023-08-31 03:30] VITALS: BP 125/75; PULSE 75; RESP 16; TEMP 36.3; O2SAT 96
[2023-08-31 07:00] VITALS: BP 128/71; PULSE 79; RESP 18; TEMP 36.3; O2SAT 96
[2023-08-31] MEDS: ACETAMINOPHEN 325 MG TABLET 650 MG PO (07:40)
[2023-08-31] MEDS: ASPIRIN 81 MG TAB.CHEW PO (09:03)
[2023-08-31] MEDS: DONEPEZIL 10 MG TABLET PO ×2 (09:03→20:16)
[2023-08-31] MEDS: SODIUM CHLORIDE 0.9 % (FLUSH) 10 ML SYRINGE 5 ML IVF ×2 (09:03→20:16)
[2023-08-31 11:00] VITALS: BP 133/74; PULSE 63; RESP 16; TEMP 36.3; O2SAT 96
--- NOTE | 2023-08-31 13:04 | P.IMPN_ITS ---
Progress Note: A&P Assessment and plan (1) Confusion: Problem details: - no obvious acute changes on assessment at this time suggesting progression of underlying dementia. - MOCA pending. Looking at [facility] at discharge tomorrow. Status: Acute (2) Mixed Alzheimer's and vascular dementia: Problem details: - followed by Dr. Luis Gold, neurologist, [facility] [place] [facility] - donepezil 10 mg orally twice daily - MRI of brain without contrast on 12/14/2022 demonstrating: Scattered nonspecific T2-FLAIR hyperintensities within the cerebral white matter and jana consistent with mild chronic microvascular ischemic change. Moderate generalized cerebral atrophy. Tiny chronic lacunar type infarctions left cerebellar hemisphere. - it appears patient is no longer safe in her home. Reviewed with son who indicates he feels likewise. He is willing to consider alternative living arrangements if possible. Will ask PT and OT to assess and assist with recommendations. Status: Chronic (3) Falls: Problem details: - no obvious acute changes on assessment at this time suggesting progression of underlying dementia. Status: Acute (4) Pneumonia: Problem details: - Possible, WBC elevated, no infiltrate seen on CT. Pulmonary fibrosis more likely diagnosis. Has not had any fevers. Treat with 3 days of antibiotics (currently on ceftriaxone, azithromycin), then stop Status: Acute (5) Pulmonary interstitial fibrosis: Problem details: - patient likely does not have an acute pneumonia. CT chest severe pulmonary fibrosis Status: Acute (6) Lymphadenopathy, mediastinal: Problem details: - on CT 08/30/23, concerning for the possibility of malignancy. I spoke with the patient's son regarding this and the recommendation for outpatient PET-CT. We also discussed patient has dementia and goals of care. He is going to discuss this further with her before making the decision about whether not to investigate further. Status: Acute Subjective Date Seen: 08/31/23 Interval history: Jeannine was under the covers. She complained of being cold, and I told her I could get her warm blanket. She said that might be nice for her feet. I went to go get 1 in was back within less than a minute. When I came back with a warm blanket, she asked me what that was for. She did not remember feeling cold. I spoke with her son, Fawad, over the phone around 11:45 a.m.. Fawad visited his mom yesterday evening and noted that she has a very poor short term memory. He wishes to schedule the outpatient PET-CT on discharge and talk with his family about whether or not to do further workup. He tells me that he thinks that his mom would not want anything else done. Exam Narrative: Exam Narrative: General: No acute distress. Awake, alert, oriented to self. Cardiovascular: Regular rate and rhythm. No murmurs, gallops, or rubs. Respiratory: Clear to auscultation bilaterally. No wheezes or crackles. Extremities: No pedal edema. Const: Vital Signs, click to edit/add: Vital Signs - 24 hr 08/30/23 15:00 08/30/23 15:00 08/30/23 19:00 Temperature 98.1 F 98.5 F Pulse Rate [Pulse Oximeter] 68 68 77 Respiratory Rate 16 16 16 Blood Pressure [Le ft Arm] 114/64 130/63 Pulse Oximetry 97 97 Oxygen Delivery Me thod Room Air Room Air 08/30/23 23:00 08/30/23 23:00 08/31/23 03:30 Temperature 97.6 F 97.3 F L Pulse Rate [Pulse Oximeter] 62 62 75 Respiratory Rate 16 16 16 Blood Pressure [Le ft Arm] 115/61 125/75 Pulse Oximetry 96 96 Oxygen Delivery Me thod Room Air Room Air 08/31/23 07:00 08/31/23 07:00 Temperature 97.3 F L Pulse Rate [Pulse Oximeter] 79 79 Respiratory Rate 18 18 Blood Pressure [Le ft Arm] 128/71 Pulse Oximetry 96 Oxygen Delivery La thod Room Air
--- NOTE | 2023-08-31 14:29 | PC.NURSE ---
End of Shift Nursing Note ([id number]): Patient alert and oriented to self only during shift. Patient very lethargic this morning and complained of generalized pain/discomfort. PRN Tylenol given with some improvement (pt resting on reassessment). Pt refused breakfast. Patient ate 100% of lunch and seemed to be more alert this afternoon. Patient ambulates with Ax1 with walker/GB. Patient does not use call light; bed alarms on and tool and die maker socks on at all times. Patient takes pills whole without any swallowing difficulty. Patient has generalized bruising consistent to recent fall. Patient's discharge plan is still in place to discharge to [facility] in [place] tomorrow, 09/01/23. Vitals within normal limits during shift. IV in R) AC saline locked and patent. Patient appears to be resting comfortably at end of shift. Will continue to implement ongoing plan of care.
--- NOTE | 2023-08-31 14:48 | PC.SOCIAL ---
Addendum entered by KATHY Cornell 08/31/23 16:11: Discharge planning: viscose department worker left another message for Liza Craig #[phone] this afternoon at 4:06pm asking about an admit time for the pt tomorrow. viscose department worker also spoke to pt's son, Fawad, pamela and he confirmed that he can transport the pt tomorrow. Social work to follow-up as needed. Original Note: Discharge planning: viscose department worker left a message with Liza Craig #[phone] to check on an admit time for the pt for tomorrow. Liza did not answer so this worker left a message. Social work to follow-up as needed.
[2023-08-31 15:00] VITALS: BP 108/59; PULSE 68; RESP 16; TEMP 36.8; O2SAT 97
[2023-08-31 20:12] VITALS: BP 127/68; PULSE 76; RESP 16; TEMP 36.6; O2SAT 98
[2023-08-31 23:00] VITALS: BP 141/74; PULSE 73; PULSE 76; RESP 16; TEMP 36.6; O2SAT 95
[2023-09-01 03:41] VITALS: BP 139/73; PULSE 71; RESP 16; TEMP 36.3; O2SAT 97
--- NOTE | 2023-09-01 06:43 | PC.NURSE ---
End of shift note [id number]: Pt alert & oriented to self only. Pt noted to be repeatedly asking questions such as, ?Why am I here??, Where is my son? though is noted to be pleasantly confused with staff interactions and staff providing reorientation. Pt has been denying pain when asked. VSS and pt has been afebrile. Pt transfers/ambulates with SBA using 4WW and gait belt. Bed alarm utilized as pt remains high fall risk due to dementia and hx of falls prior to admission. IV to R AC patent and SL. Pt has been refusing to have TEDs applied. She does not use call light appropriately when needing assistance. Current plan in place is for pt to discharge to [facility] in [place] this morning for ongoing care.
[2023-09-01 07:00] VITALS: BP 137/72; PULSE 68; RESP 16; TEMP 36.4; O2SAT 97
--- NOTE | 2023-09-01 07:49 | PM.DS1 ---
DS: Providers Provider Date Seen: 09/01/23 Date of admission: 08/31/23 09:05 Primary care physician: Not a Local Provider Admitting Clinician: Yaakov Bass MD Consults: PT, OT, SW Attending Physician on discharge: Shanae Mejia MD Date of Discharge: 09/01/23 DS: Diagnosis Discharge Diagnosis (1) Confusion: Status: Acute Problem details: - no obvious acute changes on assessment at this time suggesting progression of underlying dementia. - MOCA 03/25 - patient accepted to [facility] assisted living, son to transport upon discharge (2) Mixed Alzheimer's and vascular dementia: Status: Chronic Problem details: - followed by Dr. Luis Gold, neurologist, [facility] - donepezil 10 mg orally twice daily - MRI of brain without contrast on 12/14/2022 demonstrating: Scattered nonspecific T2-FLAIR hyperintensities within the cerebral white matter and jana consistent with mild chronic microvascular ischemic change. Moderate generalized cerebral atrophy. Tiny chronic lacunar type infarctions left cerebellar hemisphere. - it appears patient is no longer safe in her home, son agreed and patient was accepted at a Memory Care Assisted Living facility upon discharge (3) Falls: Status: Acute Problem details: - no obvious acute changes on assessment at this time suggesting progression of underlying dementia. (4) Pneumonia: Status: Acute Problem details: - Possible, WBC elevated, no infiltrate seen on CT. Pulmonary fibrosis more likely diagnosis. Has not had any fevers. - Treated with 3 days of antibiotics (ceftriaxone, azithromycin) during stay (5) Pulmonary interstitial fibrosis: Status: Acute Problem details: - patient likely does not have an acute pneumonia. CT chest severe pulmonary fibrosis (6) Lymphadenopathy, mediastinal: Status: Acute Problem details: - on CT 08/30/23, concerning for the possibility of malignancy. Dr. Doty spoke with the patient's son regarding this and the recommendation for outpatient PET-CT, in addition to goals of care. He is going to discuss this further with her before making the decision about whether not to investigate further. DS: Summary Hospital Course Hospital Course: Jeannine is a 78-year-old female with known cognitive impairment who presented to the hospital with her son for acutely worsening memory problems and fall risk. During stay, she was seen by our therapy teams; MOCA 03/25. Had a mild cough on admission, initial concern for PNA (received short course of Azithromycin and Ceftriaxone).\ CT obtained with formal radiology read per below: 1. Moderate to severe interstitial fibrosis pattern. The pattern regarding its underlying etiology is indeterminate/nonspecific. This involves all lobes but has a somewhat basilar predominance. No definite honeycombing. No diffuse ground-glass. 2. Right paratracheal and mediastinal lymphadenopathy. The laterality and lack of diffuse lymphadenopathy arguing for a malignant rather than a reactive process. This should be further evaluated in the nonacute setting. 3. There are some confluent ground-glass opacities at the right base which could be ground-glass nodules though it may simply represent asymmetric development of fibrosis. 4. From an imaging perspective, PET-CT would be the study of choice for further evaluation. Son aware of findings, will discuss goals of care with mother to assess further workup of above results Given cognitive impairment, increased services required upon discharge. Social serves team worked with son and were able to find patient an assisted living Memory Care facility upon discharge, son will be transporting. Time Spent with Patient Time attestation: Total time spent providing and/or coordinating discharge services: Time spent: Less than 30 minutes Exam Narrative: Exam Narrative: GEN: Pleasant, sitting comfortably in bed HEENT: EOMIs bilaterally, no scleral icterus CV: RRR, soft systolic murmur without concerning feature R: No concerning wheezing, air movement adequate Ext: wwp, no concerning edema Skin: No concerning skin lesions or rashes on exposed skin Psych: MCI apparent, no agitation Const: Vital Signs, click to edit/add: Vital Signs - 24 hr 08/31/23 11:00 08/31/23 15:00 08/31/23 20:12 Temperature 97.3 F L 98.2 F 97.8 F Pulse Rate [Pulse Oximeter] 63 68 76 Respiratory Rate 16 16 16 Blood Pressure [Le ft Arm] 133/74 108/59 L 127/68 Pulse Oximetry 96 97 98 Oxygen Delivery Me thod Room Air Room Air Room Air 08/31/23 23:00 08/31/23 23:00 09/01/23 03:41 Temperature 97.9 F 97.3 F L Pulse Rate [Pulse Oximeter] 76 73 71 Respiratory Rate 16 16 16 Blood Pressure [Le ft Arm] 141/74 H 139/73 Pulse Oximetry 95 97 Oxygen Delivery Me thod Room Air Room Air 09/01/23 07:00 09/01/23 07:00 Temperature 97.6 F Pulse Rate [Pulse Oximeter] 68 68 Respiratory Rate 16 16 Blood Pressure [Le ft Arm] 137/72 Pulse Oximetry 97 Oxygen Delivery Me thod Room Air DS: Data Data Completed and Pending Labs on day of discharge: Preliminary micro results at discharge 08/29/23 16:24 Blood Culture - Preliminary Blood NO GROWTH AFTER 48 HOURS 08/29/23 15:38 Blood Culture - Preliminary Blood NO GROWTH AFTER 48 HOURS Discharge Plan Discharge Disposition: Xfer [facility] Date of Admission: 08/31/23 09:05 Attending Provider on Discharge: Anette Doty Primary Care Provider: Provider,Not a Local Discharge Medications: Continued aspirin 81 mg tablet,chewable 81 mg PO DAILY donepezil 10 mg tablet 10 mg PO HS Discharge Orders: Discharge Order (Routine); Ordered 09/01/23 Ordered By: Shanae Mejia Additional Instructions: PET-CT for mediastinal lymphadenopathy seen on CT chest, to be scheduled as an outpatient by patient and son if within goals of care. Activity Level: Up with assist and Use Walker Discharge Diet: Regular Follow Up Appointments: Provider,Not a Local [Primary Care Provider] - Forms: [employer] Info Instructions Admit to: Assisted Living Discharge Potential: Poor Length of Stay: >90 days Can use facility standing orders?: Yes Code Status: DNR/DNI TEDs: N/A Rehab Potential: Fair Therapy: Physical Therapy and Occupational Therapy Therapy Orders: Evaluate and Treat Oxygen: No Urinary Catheter: No Orders are good >30 days: No Signature: Anette Doty MD
[2023-09-01] MEDS: DONEPEZIL 10 MG TABLET PO (08:43)
[2023-09-01] MEDS: SODIUM CHLORIDE 0.9 % (FLUSH) 10 ML SYRINGE 5 ML IVF (08:43)
[2023-09-01] MEDS: ASPIRIN 81 MG TAB.CHEW PO (08:43)
--- NOTE | 2023-09-01 11:54 | PC.SOCIAL ---
Discharge planning: Pt's son plans to pick pt up around noon to bring her to [facility]. Pt needs to be to the facility by 2:30-3:00pm. Signed discharge orders were faxed over to the facility this morning by the charge nurse on duty at fax #[phone]. Social work to follow-up as needed.
--- NOTE | 2023-09-03 10:30 | PC.NURSE ---
Lab called with positive blood culture from 08/29/23 blood draw. Results given to Dr. Mejia.
--- NOTE | 2023-09-03 10:39 | PM.EN ---
Chart Event Note Date Seen: 09/03/23 Chart Event Note: Received a positive blood culture on patient, collected on day of admission (08/29/23), + GNR. Called her new assisted living facility ([facility] [place]), RN states patient has been stable, afebrile. Faxed + BCx to [facility] ([phone]), asked RN to followup with repeat labs and provider visit. Also reviewed with garcia Celestin by phone - reviewed f/u recommendations, red flag symptoms, etc.
== END 2023-09-01 13:20 | DRG 56 ==
LOC: ED 15:58 → MEDSURG 20:58
PROVIDERS: Admitting Provider Internal Medicine; Emergency Provider Emergency Medicine; Visit Provider Internal Medicine
DX: G30.9 Alzheimer's disease, unspecified (principal); J18.9 Pneumonia, unspecified organism; F01.50 Vascular dementia, unspecified severity, without behavioral disturbance, psychotic disturbance, mood disturbance, and anxiety; F02.80 Dementia in other diseases classified elsewhere, unspecified severity, without behavioral disturbance, psychotic disturbance, mood disturbance, and anxiety; B96.89 Other specified bacterial agents as the cause of diseases classified elsewhere; I10 Essential (primary) hypertension; Z91.81 History of falling; J84.10 Pulmonary fibrosis, unspecified; R59.0 Localized enlarged lymph nodes; R40.2142 Coma scale, eyes open, spontaneous, at arrival to emergency department; R40.2252 Coma scale, best verbal response, oriented, at arrival to emergency department; R40.2362 Coma scale, best motor response, obeys commands, at arrival to emergency department; S00.03XA Contusion of scalp, initial encounter; W18.30XA Fall on same level, unspecified, initial encounter; Y92.019 Unspecified place in single-family (private) house as the place of occurrence of the external cause; E78.5 Hyperlipidemia, unspecified
CPT/HCPCS: 36415; 70450; 71046; 71250; 72125; 80048; 81001; 83605; 84484; 85025; 86140; 87040; 87077; 87086; 87185; 87186; 87631; 93005; 97116; 97161; 97165; 97535; 99284; 99285; A9270; G0378; J0456; J0696; J7030; J7050